=== PATIENT | female | born 1995 | race Caucasian/White ===

== ENCOUNTER 2022-02-22 21:14 | Emergency (ER) | payer OTHER ==
[~2022-02-22] VITALS: Ht 157.5 cm; Wt 64.1 kg
[2022-02-22] MEDS ORDERED: KETOROLAC TROMETHAMINE 30 MG/ML VIAL IM ONE (23:00)
[2022-02-22] MEDS ORDERED: ACETAMINOPHEN 500 MG TABLET PO ONE (23:00)
[2022-02-22] MEDS ORDERED: LIDOCAINE 5% TRANSDERMAL PATCH TD ONE (23:00)
[2022-02-23 00:29] VITALS: BP 123/76
== END 2022-02-23 00:48 | disposition home or self-care (01) ==
LOC: EMS 21:21
DX: R51.9 Headache, unspecified (principal)
CPT/HCPCS: 99283; 96372; J1885